=== PATIENT | female | born 1950 | race Caucasian/White ===

== ENCOUNTER 2016-12-29 19:15 | Emergency (ER) | payer MEDICARE ==
[~2016-12-29] VITALS: Ht 152.4 cm; Wt 59.0 kg
[~2016-12-29 19:15] MED LIST: CELEXA40 MG PO; INDERAL 1 MG/ML; Lortab 5/500 501 TAB PO; NORVASC5 MG PO; NUCYNTA100 MG PO; PRILOSEC20 MG PO; TOPAMAX200 MG PO; VICODIN 500 MG-1 TAB PO; WELLBUTRIN75 MG PO; [UNRECOGNIZED DRUG - OTHER]
== END 2016-12-29 23:16 | disposition home or self-care (01) ==
LOC: ED 19:15
DX: T40.1X1A Poisoning by heroin, accidental (unintentional), initial encounter (principal); R55 Syncope and collapse; Z79.899 Other long term (current) drug therapy; Y92.9 Unspecified place or not applicable

== ENCOUNTER 2017-03-09 19:31 | Emergency (ER) | payer MEDICARE ==
[~2017-03-09] VITALS: Ht 149.8 cm; Wt 63.5 kg
[2017-03-09 20:07] LABS: BASO # 0.1 10*3/uL (0.0-0.1); BASO % 0.4 % (0.0-1.0); EOS # 0.2 10*3/uL (0.0-0.4); EOS % 1.3 % (1.0-4.0); HEMATOCRIT 38.6 % (37.0-47.0); HEMOGLOBIN 12.4 g/dl (12.0-16.0); LYMPH # 2.9 10*3/uL (1.3-4.4); LYMPH % 25.8 % (27.0-41.0); MEAN CELL VOLUME 102.9 fl (81.0-99.0); MEAN CORPUSCULAR HGB 33.1 pg (27.0-31.0); MEAN CORPUSCULAR HGB CONC 32.1 g/dl (33.0-37.0); MONO # 0.7 10*3/uL (0.1-1.0); MONO % 5.8 % (3.0-9.0); NEUT # 7.5 10*3/uL (2.3-7.9); NEUT % 66.4 % (47.0-73.0); PLATELET COUNT AUTOMATED 266 10*3/uL (130-400); RED BLOOD COUNT 3.75 10*6/uL (4.10-5.10); RED CELL DISTRI WIDTH 13.6 % (0-14.5); WHITE BLOOD COUNT 11.3 10*3/uL (4.8-10.8)
[2017-03-09 20:26] LABS: ALBUMIN 3.6 gm/dl (3.1-4.5); ALKALINE PHOSPHATASE 59 U/L (45-117); BUN 21 mg/dl (7-24); CHLORIDE 110 mmol/L (98-107); CREATININE 1.46 mg/dL (0.55-1.02); ETHYL ALCOHOL < 3.0 mg/dl (<3); POTASSIUM 4.1 mmol/L (3.5-5.1); SGOT/AST 27 IU/L (3-35); SGPT/ALT 34 U/L (12-78); SODIUM 143 mmol/L (136-145); TOTAL PROTEIN 6.9 gm/dL (6.4-8.2); TROPONIN I < 0.015 ng/ml (<0.045)
[2017-03-09 20:48] LABS: BILIRUBIN NEGATIVE (NEGATIVE); BLOOD NEGATIVE (NEGATIVE); CLARITY CLEAR (CLEAR); COLOR YELLOW (YELLOW); GLUCOSE NEGATIVE (NEGATIVE); KETONE NEGATIVE (NEGATIVE); LEUKO ESTERASE TRACE (NEGATIVE); NITRITE NEGATIVE (NEGATIVE); SPECIFIC GRAVITY 1.015 (1.005-1.030); UROBILINOGEN 0.2 E.U./dl (0.2-1.0)
[2017-03-09 20:56] LABS: BACTERIA TRACE
[2017-03-09 20:59] LABS: URINE AMPHETAMINES < 1000 (1000ng/ml); URINE BARBITURATES < 200 (200ng/ml); URINE BENZODIAZEPINES < 200 (200ng/ml); URINE CANNABINOIDS (THC) < 50 (50ng/ml); URINE COCAINE > 300 (300ng/ml); URINE METHADONE < 300 (300ng/ml); URINE OPIATES > 300 (300ng/ml)
[2017-03-09 21:05] LABS: URINE PHENCYCLIDINE < 25 (25ng/ml)
== END 2017-03-09 22:06 | disposition home or self-care (01) ==
LOC: ED 19:31
PROVIDERS: Emergency Medicine
DX: F19.10 Other psychoactive substance abuse, uncomplicated (principal); Z79.899 Other long term (current) drug therapy

== ENCOUNTER → 2017-08-17 | Outpatient (CLI) | payer MEDICARE | END | disposition home or self-care (01) | LOC: US 01:53 | DX: D25.9 Leiomyoma of uterus, unspecified (principal); N95.0 Postmenopausal bleeding ==

== ENCOUNTER → 2018-01-15 | Outpatient (CLI) | payer MEDICARE | END | disposition home or self-care (01) | LOC: ORTHO 04:26 | DX: S42.201A Unspecified fracture of upper end of right humerus, initial encounter for closed fracture (principal); X58.XXXA Exposure to other specified factors, initial encounter; Y93.89 Activity, other specified; Y92.89 Other specified places as the place of occurrence of the external cause; Y99.8 Other external cause status ==

== ENCOUNTER → 2018-01-23 | Outpatient (CLI) | payer MEDICARE | END | disposition home or self-care (01) | LOC: ORTHO 04:34 | DX: S42.351D Displaced comminuted fracture of shaft of humerus, right arm, subsequent encounter for fracture with routine healing (principal); S42.209D Unspecified fracture of upper end of unspecified humerus, subsequent encounter for fracture with routine healing; X58.XXXD Exposure to other specified factors, subsequent encounter ==

== ENCOUNTER → 2018-09-11 | Outpatient (CLI) | payer MEDICARE | END | disposition home or self-care (01) | LOC: ORTHO 00:34 | DX: M19.011 Primary osteoarthritis, right shoulder (principal); M25.711 Osteophyte, right shoulder ==

== ENCOUNTER → 2019-06-12 | Outpatient (CLI) | payer MEDICARE ==
[2019-06-12 16:02] LABS: BASO # 0.1 10*3/uL (0.0-0.1); BASO % 0.7 % (0.0-1.0); EOS # 0.1 10*3/uL (0.0-0.4); EOS % 1.6 % (1.0-4.0); HEMATOCRIT 45.5 % (37.0-47.0); HEMOGLOBIN 14.2 g/dl (12.0-16.0); LYMPH # 2.7 10*3/uL (1.3-4.4); LYMPH % 30.9 % (27.0-41.0); MEAN CELL VOLUME 103.9 fl (81.0-99.0); MEAN CORPUSCULAR HGB 32.4 pg (27.0-31.0); MEAN CORPUSCULAR HGB CONC 31.2 g/dl (33.0-37.0); MEAN PLATELET VOLUME 10.4 fl (9.6-12.3); MONO # 0.5 10*3/uL (0.1-1.0); MONO % 5.4 % (3.0-9.0); NEUT # 5.3 10*3/uL (2.3-7.9); NEUT % 61.2 % (47.0-73.0); PLATELET COUNT AUTOMATED 322 10*3/uL (130-400); RED BLOOD COUNT 4.38 10*6/uL (4.10-5.10); WHITE BLOOD COUNT 8.7 10*3/uL (4.8-10.8)
[2019-06-12 16:14] LABS: BUN 12 mg/dl (7-24); CHLORIDE 114 mmol/L (98-107); CREATININE 0.94 mg/dL (0.55-1.02); SODIUM 143 mmol/L (136-145)
== END | disposition home or self-care (01) ==
LOC: RESCLI 00:35
PROVIDERS: Internal Medicine
DX: F32.9 Major depressive disorder, single episode, unspecified (principal); G43.909 Migraine, unspecified, not intractable, without status migrainosus; I10 Essential (primary) hypertension; N32.89 Other specified disorders of bladder; E55.9 Vitamin D deficiency, unspecified; G25.81 Restless legs syndrome; K21.9 Gastro-esophageal reflux disease without esophagitis; Z79.899 Other long term (current) drug therapy; Z90.710 Acquired absence of both cervix and uterus; Z87.891 Personal history of nicotine dependence

== ENCOUNTER → 2019-07-02 | Outpatient (CLI) | payer MEDICARE | END | disposition home or self-care (01) | LOC: MRI 12:17 | DX: M47.816 Spondylosis without myelopathy or radiculopathy, lumbar region (principal); M48.07 Spinal stenosis, lumbosacral region; M43.17 Spondylolisthesis, lumbosacral region; M48.061 Spinal stenosis, lumbar region without neurogenic claudication; G95.29 Other cord compression; G95.89 Other specified diseases of spinal cord ==

== ENCOUNTER → 2020-02-20 | Outpatient (CLI) | payer MEDICARE | END | disposition home or self-care (01) | LOC: RESCLI 00:22 | PROVIDERS: ATTEND Internal Medicine | DX: I10 Essential (primary) hypertension (principal); F32.9 Major depressive disorder, single episode, unspecified; G43.909 Migraine, unspecified, not intractable, without status migrainosus; K21.9 Gastro-esophageal reflux disease without esophagitis; E55.9 Vitamin D deficiency, unspecified; G25.81 Restless legs syndrome; F41.9 Anxiety disorder, unspecified; N32.81 Overactive bladder; K59.00 Constipation, unspecified ==

== ENCOUNTER → 2020-06-02 | Outpatient (CLI) | payer MEDICARE | END | disposition home or self-care (01) | LOC: RESCLI 00:36 | PROVIDERS: ATTEND Internal Medicine Nephrology | DX: I10 Essential (primary) hypertension (principal); G25.81 Restless legs syndrome; E55.9 Vitamin D deficiency, unspecified; F32.9 Major depressive disorder, single episode, unspecified; F41.9 Anxiety disorder, unspecified; N32.81 Overactive bladder; M81.0 Age-related osteoporosis without current pathological fracture; G43.909 Migraine, unspecified, not intractable, without status migrainosus; Z79.899 Other long term (current) drug therapy ==

== ENCOUNTER → 2020-10-21 | Outpatient (CLI) | payer MEDICARE | END | disposition home or self-care (01) | LOC: RESCLI 00:35 | PROVIDERS: ATTEND Internal Medicine | DX: F32.9 Major depressive disorder, single episode, unspecified (principal); E55.9 Vitamin D deficiency, unspecified; F41.9 Anxiety disorder, unspecified; M54.5 Low back pain; G89.29 Other chronic pain; G43.909 Migraine, unspecified, not intractable, without status migrainosus; M85.89 Other specified disorders of bone density and structure, multiple sites; G62.9 Polyneuropathy, unspecified; Z12.31 Encounter for screening mammogram for malignant neoplasm of breast; Z79.82 Long term (current) use of aspirin; Z79.899 Other long term (current) drug therapy; Z98.890 Other specified postprocedural states; Z90.710 Acquired absence of both cervix and uterus; F17.210 Nicotine dependence, cigarettes, uncomplicated ==

== ENCOUNTER → 2020-12-29 | Outpatient (CLI) | payer MEDICARE | END | disposition home or self-care (01) | LOC: RESCLI 00:53 | PROVIDERS: ATTEND Family Medicine | DX: M54.5 Low back pain (principal); I10 Essential (primary) hypertension; F41.9 Anxiety disorder, unspecified; G43.909 Migraine, unspecified, not intractable, without status migrainosus; G62.9 Polyneuropathy, unspecified; K21.9 Gastro-esophageal reflux disease without esophagitis; M80.00XS Age-related osteoporosis with current pathological fracture, unspecified site, sequela; F17.210 Nicotine dependence, cigarettes, uncomplicated; Z79.82 Long term (current) use of aspirin; Z79.899 Other long term (current) drug therapy; Z98.890 Other specified postprocedural states ==

== ENCOUNTER → 2021-03-30 | Outpatient (CLI) | payer MEDICARE | END | disposition home or self-care (01) | LOC: RESCLI 01:17 | PROVIDERS: ATTEND Family Medicine | DX: M54.59 Other low back pain (principal); K21.9 Gastro-esophageal reflux disease without esophagitis; E55.9 Vitamin D deficiency, unspecified; I10 Essential (primary) hypertension; G62.9 Polyneuropathy, unspecified; F32.9 Major depressive disorder, single episode, unspecified; M81.0 Age-related osteoporosis without current pathological fracture; F41.9 Anxiety disorder, unspecified; G43.909 Migraine, unspecified, not intractable, without status migrainosus; Z79.82 Long term (current) use of aspirin; Z79.899 Other long term (current) drug therapy ==

== ENCOUNTER 2021-12-05 15:44 | Emergency (ER) | payer MEDICARE ==
[~2021-12-05] VITALS: Ht 147.3 cm; Wt 47.6 kg
[2021-12-05 16:26] LABS: BASO # 0.1 10*3/uL (0.0-0.1); BASO % 0.4 % (0.0-1.0); EOS # 0.1 10*3/uL (0.0-0.4); EOS % 0.3 % (1.0-4.0); HEMATOCRIT 37.9 % (37.0-47.0); LYMPH # 1.2 10*3/uL (1.3-4.4); LYMPH % 6.2 % (27.0-41.0); MEAN CELL VOLUME 82.8 fl (81.0-99.0); MEAN CORPUSCULAR HGB 24.9 pg (27.0-31.0); MEAN CORPUSCULAR HGB CONC 30.1 g/dl (33.0-37.0); MONO # 0.8 10*3/uL (0.1-1.0); MONO % 3.9 % (3.0-9.0); NEUT # 17.1 10*3/uL (2.3-7.9); NEUT % 87.6 % (47.0-73.0); PLATELET COUNT AUTOMATED 121 10*3/uL (130-400); RED BLOOD COUNT 4.58 10*6/uL (4.10-5.10); WHITE BLOOD COUNT 19.5 10*3/uL (4.8-10.8)
[2021-12-05 16:40] LABS: ALKALINE PHOSPHATASE 69 U/L (45-117); BUN 22 mg/dl (7-24); CHLORIDE 103 mmol/L (98-107); CREATININE 0.62 mg/dL (0.55-1.02); POTASSIUM 3.6 mmol/L (3.5-5.1); SGOT/AST 16 IU/L (3-35); SGPT/ALT 19 U/L (12-78); SODIUM 137 mmol/L (136-145); TOTAL PROTEIN 8.8 gm/dL (6.4-8.2)
[2021-12-05 16:45] LABS: TOTAL CELLS COUNTED 100 #CELLS
[2021-12-05 16:46] LABS: OVALOCYTES FEW; PLATELET SUFFICIENCY LOW (NORMAL)
[2021-12-05 17:56] LABS: BILIRUBIN Negative (Negative); BLOOD Negative (Negative); CLARITY Clear (Clear); COLOR Yellow (Yellow); GLUCOSE Negative (Negative); KETONE Trace (Negative); LEUKO ESTERASE Negative (Negative); NITRITE Negative (Negative)
[2021-12-05 18:18] LABS: BACTERIA 2+; EPITHELIAL CELLS 0-2; HYALINE CAST 0-2
== END 2021-12-05 20:05 | disposition home or self-care (01) ==
LOC: ED 15:44
PROVIDERS: Nurse Practitioner Family
DX: R10.9 Unspecified abdominal pain (principal); Z79.899 Other long term (current) drug therapy

== ENCOUNTER 2021-12-24 19:24 | Emergency (ER) | payer MEDICARE ==
[~2021-12-24] VITALS: Ht 147.3 cm; Wt 36.3 kg
[2021-12-24 21:06] LABS: HEMATOCRIT 34.2 % (37.0-47.0); MEAN CELL VOLUME 83.8 fl (81.0-99.0); MEAN CORPUSCULAR HGB 25.2 pg (27.0-31.0); MEAN CORPUSCULAR HGB CONC 30.1 g/dl (33.0-37.0); PLATELET COUNT AUTOMATED 115 10*3/uL (130-400); RED BLOOD COUNT 4.08 10*6/uL (4.10-5.10); RED CELL DISTRI WIDTH 25.6 % (0-14.5); WHITE BLOOD COUNT 12.7 10*3/uL (4.8-10.8)
[2021-12-24 21:47] LABS: MANUAL DIFF REFLEX YES
[2021-12-24 21:49] LABS: ATYPICAL LYMPHS 1 % (0-0); BASOPHILS 2 % (0-1); TOTAL CELLS COUNTED 100 #CELLS
[2021-12-24 21:50] LABS: BURR CELLS FEW; MICROCYTOSIS SLIGHT; PLATELET SUFFICIENCY LOW (NORMAL)
[2021-12-24 21:52] LABS: SCHISTOCYTES FEW; SPHEROCYTES FEW
[2021-12-24 21:56] LABS: ALKALINE PHOSPHATASE 79 U/L (45-117); BUN 13 mg/dl (7-24); CHLORIDE 99 mmol/L (98-107); POTASSIUM 3.7 mmol/L (3.5-5.1); SGOT/AST 35 IU/L (3-35); SGPT/ALT 42 U/L (12-78); SODIUM 132 mmol/L (136-145); TOTAL PROTEIN 7.9 gm/dL (6.4-8.2)
[2021-12-24 23:09] LABS: BILIRUBIN Negative (Negative); BLOOD Negative (Negative); CLARITY Clear (Clear); COLOR Yellow (Yellow); GLUCOSE Negative (Negative); KETONE 2+ (Negative); LEUKO ESTERASE Trace (Negative); NITRITE Negative (Negative)
[2021-12-24 23:22] LABS: BACTERIA 1+
== END 2021-12-25 04:56 | disposition home or self-care (01) ==
LOC: ED 19:24
PROVIDERS: Emergency Medicine
DX: E86.0 Dehydration (principal); M54.9 Dorsalgia, unspecified; R53.1 Weakness; I10 Essential (primary) hypertension; C54.1 Malignant neoplasm of endometrium; Z79.899 Other long term (current) drug therapy; Z87.42 Personal history of other diseases of the female genital tract; Z98.890 Other specified postprocedural states